=== PATIENT | male | born 1940 | race Caucasian/White ===

== ENCOUNTER 2020-08-09 18:48 | Emergency (ER) | payer MEDICARE, OTHER ==
[2020-08-09 19:31] LABS: CHLORIDE,CL 102 mEq/L (98-106); SODIUM,NA 141 mEq/L (136-145)
[2020-08-09] MEDS ORDERED: fentaNYL 100 MCG/2 ML SDV IM PRN (19:33)
--- NOTE | 2020-08-09 19:34 | EDM.PDOC ---
ED HPI GENERAL MEDICAL PROBLEM - General Chief Complaint: General Stated Complaint: Left side pain Time Seen by Provider: 08/09/20 19:25 Source of Information: Reports: Patient History Limitations: Reports: No Limitations - History of Present Illness INITIAL COMMENTS - FREE TEXT/NARRATIVE: States that he was sitting in his chair yesterday and he started to get pain in the right hip side region. Was gradual onset and then today it has moved to the left side and the pain on the right side stopped. States that he has never had pain like this before. Denies any falls or slips. Does have history of kidney stones many years ago but they didn't feel like he currently has. States that it does come and go and it is sharp suddenly and then will let up some. States that the worst pain was just as he arrived here tonight with pain 8.5/10 and being the worst that he has had. Denies any fever or chills. No n/v/d. Does not feel sick. Position does not change the pain. Onset Date: 08/08/20 Location: Reports: Abdomen, Back Left Lower Flank Pain Score (Numeric/FACES): 8 - Related Data Allergies Allergy/AdvReac Type Severity Reaction Status Date / Time bacitracin [From Mycitracin] Allergy Unknown unknown Verified 08/09/20 19:54 bee venom protein (honey bee) Allergy Unknown unknown Verified 08/09/20 19:12 lidocaine [From Mycitracin] Allergy Unknown unknown Verified 08/09/20 19:54 neomycin [From Mycitracin] Allergy Unknown unknown Verified 08/09/20 19:54 polymyxin B [From Mycitracin] Allergy Unknown unknown Verified 08/09/20 19:54 Home Meds: Home Meds Aspirin [Halfprin] 81 mg PO DAILY 08/09/20 [History] Bisoprolol/Hydrochlorothiazide [Bisoprolol-Hctz 5-6.25 mg Tab] 5 - 6.25 mg PO DAILY 08/09/20 [History] Ferrous Sulfate 65 mg PO DAILY 08/09/20 [History] Losartan Potassium 100 mg PO DAILY 08/09/20 [History] Multivitamin [Daily Multiple Vitamin] 1 each PO DAILY 08/09/20 [History] Vitamin B Complex [B Complex] 15 mcg PO DAILY 08/09/20 [History] atorvaSTATin [Lipitor] 40 mg PO DAILY 08/09/20 [History] metFORMIN HCl [Metformin HCl] 500 mg PO DAILY 08/09/20 [History] Past Medical History HEENT History: Reports: Cataract, Impaired Vision Cardiovascular History: Reports: High Cholesterol, Hypertension Genitourinary History: Reports: Renal Calculus Endocrine/Metabolic History: Reports: Diabetes, Type II - Past Surgical History GI Surgical History: Reports: Colonoscopy Musculoskeletal Surgical History: Reports: Other (See Below) Other Musculoskeletal Surgeries/Procedures:: States first toe on right foot had joint replacement Social & Family History - Tobacco Use Tobacco Use Status *Q: Current Every Day Tobacco User Years of Tobacco use: 50 Packs/Tins Daily: 0.3 - Caffeine Use Caffeine Use: Reports: Coffee - Recreational Drug Use Recreational Drug Use: No - Living Situation & Occupation Living situation: Reports: , with Spouse, with Family Occupation: Retired ED ROS GENERAL - Review of Systems Review Of Systems: See Below Constitutional: Denies: Fever, Chills, Weakness Respiratory: Reports: No Symptoms Cardiovascular: Reports: No Symptoms GI/Abdominal: Reports: Abdominal Pain. Denies: Constipation, Diarrhea, Nausea, Vomiting : Reports: Flank Pain. Denies: Dysuria Musculoskeletal: Reports: Other (see HPi) Skin: Reports: No Symptoms ED EXAM, GENERAL - Physical Exam Exam: See Below Exam Limited By: No Limitations General Appearance: Alert, WD/WN, Moderate Distress Respiratory/Chest: No Respiratory Distress, Lungs Clear, Normal Breath Sounds Cardiovascular: Normal Peripheral Pulses, Regular Rate, Rhythm, No Edema GI/Abdominal: Normal Bowel Sounds, Soft, Non-Tender, Other (Has some pain to the left pelvic bone area that can be made worse with ROM of the left leg. Pain is not worse when I had him change positions.) Back Exam: Normal Inspection Extremities: Normal Inspection, No Pedal Edema, Normal Capillary Refill Neurological: Alert, Oriented Skin Exam: Warm, Dry, Intact Course - Vital Signs Last Recorded V/S: Last Vital Signs Temp 98.8 F 08/09/20 18:48 Pulse 71 08/09/20 18:48 Resp 18 08/09/20 18:48 BP 163/80 H 08/09/20 18:48 Pulse Ox 93 L 08/09/20 18:48 - Orders/Labs/Meds Orders: Active Orders 24 hr Category Date Time Status Abdomen Pelvis w Cont [CT] Routine Exams 08/09/20 Taken fentaNYL [Sublimaze] Med 08/09/20 19:33 Active 50 mcg IM Q4H PRN Medication Orders Fentanyl (Sublimaze) 50 mcg IM Q4H PRN PRN Reason: Abdominal Pain Last Admin: 08/09/20 19:40 Dose: 50 mcg Documented by: DAYAMI Labs: Laboratory Tests 08/09/20 08/09/20 08/09/20 Range/Units 17:15 17:15 17:15 WBC 11.0 H (5.0-10.0) 10^3/uL RBC 4.83 (4.50-6.00) 10^6/uL Hgb 13.8 L (14.0-18.0) g/dL Hct 42.8 (40.0-54.0) % MCV 88.6 (82.0-94.0) fL MCH 28.6 (27.0-32.0) pg MCHC 32.2 L (33.0-38.0) g/dL RDW Coeff of Eddie 14.1 (11.0-15.0) % Plt Count 262 (150-400) 10^3/uL Neut % (Auto) 72.7 (35-85) % Lymph % (Auto) 14.4 (10-55) % Wilkes % (Auto) 9.3 (0-16) % Eos % (Auto) 3.3 (0-5) % Baso % (Auto) 0.3 (0-3) % Neut # (Auto) 8.00 H (1.80-7.00) 10^3/uL Lymph # (Auto) 1.58 (1.00-4.80) 10^3/uL Wilkes # (Auto) 1.02 H (0.00-0.80) 10^3/uL Eos # (Auto) 0.36 (0.00-0.45) 10^3/uL Baso # (Auto) 0.03 10^3/uL Sodium 141 (136-145) mEq/L Potassium 4.0 (3.5-5.0) mEq/L Chloride 102 (98-106) mEq/L Carbon Dioxide 33 H (21-32) mmol/L BUN 22 H (7-18) mg/dL Creatinine 0.9 (0.7-1.3) mg/dL Est Cr Clr Drug Dosing 72.05 mL/min Estimated GFR (MDRD) > 60 (>=60) mL/min Glucose 138 H (75-99) mg/dL Calcium 9.7 (8.4-10.1) mg/dL C-Reactive Protein (0.2-0.8) mg/dL Urine Color Dark yellow (YELLOW) Urine Appearance Slightly cloudy (CLEAR) Urine pH 6.5 (4.5-8.0) Ur Specific [place] >= 1.030 H (1.003-1.020) Urine Protein 100 H (NEGATIVE) mg/dL Urine Glucose (UA) Negative (NEGATIVE) mg/dL Urine Ketones Negative (NEGATIVE) mg/dL Urine Occult Blood Trace-intact H (NEGATIVE) Urine Nitrite Negative (NEGATIVE) Urine Bilirubin Negative (NEGATIVE) Urine Urobilinogen 2.0 H (0.2-1.0) EU/dL Ur Leukocyte Esterase Negative (NEGATIVE) Urine RBC 5-10 H (0-5) /HPF Urine WBC Not seen (0-5) /HPF Urine Mucus Moderate H (NOT SEEN) /HPF 08/09/20 Range/Units 19:30 WBC (5.0-10.0) 10^3/uL RBC (4.50-6.00) 10^6/uL Hgb (14.0-18.0) g/dL Hct (40.0-54.0) % MCV (82.0-94.0) fL MCH (27.0-32.0) pg MCHC (33.0-38.0) g/dL RDW Coeff of Eddie (11.0-15.0) % Plt Count (150-400) 10^3/uL Neut % (Auto) (35-85) % Lymph % (Auto) (10-55) % Wilkes % (Auto) (0-16) % Eos % (Auto) (0-5) % Baso % (Auto) (0-3) % Neut # (Auto) (1.80-7.00) 10^3/uL Lymph # (Auto) (1.00-4.80) 10^3/uL Wilkes # (Auto) (0.00-0.80) 10^3/uL Eos # (Auto) (0.00-0.45) 10^3/uL Baso # (Auto) 10^3/uL Sodium (136-145) mEq/L Potassium (3.5-5.0) mEq/L Chloride (98-106) mEq/L Carbon Dioxide (21-32) mmol/L BUN (7-18) mg/dL Creatinine (0.7-1.3) mg/dL Est Cr Clr Drug Dosing mL/min Estimated GFR (MDRD) (>=60) mL/min Glucose (75-99) mg/dL Calcium (8.4-10.1) mg/dL C-Reactive Protein 15.9 H (0.2-0.8) mg/dL Urine Color (YELLOW) Urine Appearance (CLEAR) Urine pH (4.5-8.0) Ur Specific [place] (1.003-1.020) Urine Protein (NEGATIVE) mg/dL Urine Glucose (UA) (NEGATIVE) mg/dL Urine Ketones (NEGATIVE) mg/dL Urine Occult Blood (NEGATIVE) Urine Nitrite (NEGATIVE) Urine Bilirubin (NEGATIVE) Urine Urobilinogen (0.2-1.0) EU/dL Ur Leukocyte Esterase (NEGATIVE) Urine RBC (0-5) /HPF Urine WBC (0-5) /HPF Urine Mucus (NOT SEEN) /HPF Meds: Medications Generic Name Dose Route Start Last Admin Trade Name Freq PRN Reason Stop Dose Admin Fentanyl 50 mcg 08/09/20 19:33 08/09/20 19:40 Sublimaze IM 50 mcg Q4H PRN Administration Abdominal Pain Discontinued Medications Generic Name Dose Route Start Last Admin Trade Name Freq PRN Reason Stop Dose Admin Iopamidol 100 ml 08/09/20 20:14 08/09/20 20:36 Isovue-370 (76%) IVPUSH 08/09/20 20:15 100 ml ONETIME ONE Administration - Re-Assessments/Exams Free Text/Narrative Re-Assessment/Exam: 08/09/20 20:13 In to discuss the labs. He has elevated WBC, and CRP with blood in urine. Will get CT scan abdomen to further evaluate. 08/09/20 20:58 States that with the pain meds his pain is now completely gone. Awaiting results of CT scan. 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 Will need to brick picker at drug store. push fluids as needed tylenol or ibuprofen for pain If pain is not controlled then recheck. Sepsis Event Note (ED) - Evaluation Sepsis Screening Result: No Definite Risk - Focused Exam Vital Signs: Vital Signs Temp Pulse Resp BP Pulse Ox 08/09/20 18:48 98.8 F 71 18 163/80 H 93 L - Problem List & Annotations (1) Diverticulitis large intestine SNOMED Code(s): 8031650 Code(s): K57.32 - DVTRCLI OF LG INT W/O PERFORATION OR ABSCESS W/O BLEEDING Status: Acute Priority: High Current Visit: Yes Qualifiers: Diverticulitis bleeding: without bleeding Diverticulitis complication: without perforation or abscess Qualified Code(s): K57.32 - Diverticulitis of large intestine without perforation or abscess without bleeding - Problem List Review Problem List Initiated/Reviewed/Updated: Yes - My Orders Last 24 Hours: My Active Orders 08/09/20 Abdomen Pelvis w Cont [CT] Routine 08/09/20 19:33 fentaNYL [Sublimaze] 50 mcg IM Q4H PRN - Assessment/Plan Last 24 Hours: My Active Orders 08/09/20 Abdomen Pelvis w Cont [CT] Routine 08/09/20 19:33 fentaNYL [Sublimaze] 50 mcg IM Q4H PRN
[2020-08-09] MEDS ORDERED: Iopamidol 755 Mg/ML 100 ML Bottle IVPUSH ONE (20:14)
[2020-08-09] MEDS ORDERED: Levofloxacin 500 MG Tab ONE (21:11)
[2020-08-09] MEDS ORDERED: Take Home: Levofloxacin 500 MG Tab, 1 Tab Pack PO ONE (21:19)
== END 2020-08-09 21:40 | disposition home or self-care (01) ==
LOC: CC.ED 18:48
DX: K57.32 Diverticulitis of large intestine without perforation or abscess without bleeding (principal); D72.829 Elevated white blood cell count, unspecified; E78.00 Pure hypercholesterolemia, unspecified; I10 Essential (primary) hypertension; E11.9 Type 2 diabetes mellitus without complications; F17.210 Nicotine dependence, cigarettes, uncomplicated; Z88.1 Allergy status to other antibiotic agents; Z91.030 Bee allergy status; Z88.4 Allergy status to anesthetic agent; Z79.82 Long term (current) use of aspirin; Z79.899 Other long term (current) drug therapy
CPT/HCPCS: 36415; 74177; 80048; 81001; 85025; 86140; 96372; 99284; A9270; J3010; Q9967

== ENCOUNTER → 2021-11-03 | Day surgery (SDC) | payer MEDICARE, OTHER ==
[~2021-11-03] MED LIST: Ketamine 200 MG/20 ML MDV ONE; Lactated Ringers 1,000 ML IV SCH; Lidocaine 1% with EPINEPHrine 1:100,000 20 ML MDV INJECT ONE; Lidocaine 1% with EPINEPHrine 1:100,000 20 ML MDV ONE; Midazolam 1 MG/ML 2 ML SDV ONE; Propofol 200 MG/20 ML SDV ONE; fentaNYL 100 MCG/2 ML SDV ONE
== END ==
LOC: CC.SDS 10:56
PROVIDERS: ATTEND Surgery
DX: D17.1 Benign lipomatous neoplasm of skin and subcutaneous tissue of trunk (principal); I10 Essential (primary) hypertension; E78.00 Pure hypercholesterolemia, unspecified; E11.9 Type 2 diabetes mellitus without complications; E66.9 Obesity, unspecified; Z68.26 Body mass index [BMI] 26.0-26.9, adult; Z90.49 Acquired absence of other specified parts of digestive tract; Z90.89 Acquired absence of other organs; Z98.890 Other specified postprocedural states; Z79.82 Long term (current) use of aspirin; Z79.84 Long term (current) use of oral hypoglycemic drugs; Z79.899 Other long term (current) drug therapy; Z77.22 Contact with and (suspected) exposure to environmental tobacco smoke (acute) (chronic)
CPT/HCPCS: 00300; J2250; J2704; J3010; J7120

== ENCOUNTER 2022-08-04 15:24 | Inpatient (IN) | payer MEDICARE, OTHER ==
[2022-08-04 15:47] LABS: CHLORIDE,CL 100 mEq/L (98-106); SODIUM,NA 138 mEq/L (136-145)
[2022-08-04 15:52] LABS: ESTIMATED GFR 86 mL/min (>=60)
[2022-08-04] MEDS ORDERED: Sodium Chloride 0.9% 10 ML Syringe FLUSH PRN (16:33)
[2022-08-04] MEDS ORDERED: Ondansetron 4 MG/2 ML SDV IV PRN (16:33)
[2022-08-04] MEDS: Albuterol/Ipratropium 3.0-0.5 MG/3 ML Neb Soln NEB PRN ×2 (16:48→21:05)
[2022-08-04] MEDS: Acetaminophen 325 MG Tab PO PRN ×2 (16:48→21:04)
[2022-08-04] MEDS: Sodium Chloride 0.9% 1,000 ML IV SCH (16:49)
[2022-08-04] MEDS: Enoxaparin 40 MG/0.4 ML Syringe SUBCUT SCH (19:55)
[2022-08-04] MEDS: guaiFENesin 200 MG Tab PO SCH (19:56)
[2022-08-05] MEDS: Acetaminophen 325 MG Tab PO PRN ×4 (04:18→19:45)
[2022-08-05] MEDS: Aspirin 81 MG Tab.EC PO SCH (07:57)
[2022-08-05] MEDS: Multivitamin Tab PO SCH (07:58)
[2022-08-05] MEDS: atorvaSTATin 20 MG Tab PO SCH (07:58)
[2022-08-05] MEDS: Losartan 100 MG Tab PO SCH (07:58)
[2022-08-05] MEDS: guaiFENesin 200 MG Tab PO SCH ×3 (07:58→19:36)
[2022-08-05] MEDS: Albuterol/Ipratropium 3.0-0.5 MG/3 ML Neb Soln NEB PRN ×3 (07:59→19:46)
[2022-08-05] MEDS ORDERED: Non-Formulary Medication 1 Each (Ubidecarenone [Co Q-10] 100 MG Capsule) PO SCH (08:00)
[2022-08-05] MEDS: metFORMIN 500 MG Tab PO SCH (08:06)
[2022-08-05] MEDS: Sodium Chloride 0.9% 1,000 ML IV SCH (14:08)
[2022-08-05] MEDS: Enoxaparin 40 MG/0.4 ML Syringe SUBCUT SCH (19:35)
[2022-08-06] MEDS: atorvaSTATin 20 MG Tab PO SCH (08:07)
[2022-08-06] MEDS: guaiFENesin 200 MG Tab PO SCH ×3 (08:07→19:19)
[2022-08-06] MEDS: Losartan 100 MG Tab PO SCH (08:08)
[2022-08-06] MEDS: Multivitamin Tab PO SCH (08:08)
[2022-08-06] MEDS: Aspirin 81 MG Tab.EC PO SCH (08:08)
[2022-08-06] MEDS: Albuterol/Ipratropium 3.0-0.5 MG/3 ML Neb Soln NEB PRN ×3 (08:08→19:20)
[2022-08-06] MEDS: metFORMIN 500 MG Tab PO SCH (08:10)
[2022-08-06] MEDS: Sodium Chloride 0.9% 1,000 ML IV SCH (10:26)
[2022-08-06] MEDS: Acetaminophen 325 MG Tab PO PRN ×2 (11:14→16:21)
[2022-08-06] MEDS: Enoxaparin 40 MG/0.4 ML Syringe SUBCUT SCH (19:19)
[2022-08-07] MEDS: Acetaminophen 325 MG Tab PO PRN (00:04)
[2022-08-07] MEDS: metFORMIN 500 MG Tab PO SCH (08:03)
[2022-08-07] MEDS: Albuterol/Ipratropium 3.0-0.5 MG/3 ML Neb Soln NEB PRN (08:03)
[2022-08-07] MEDS: Multivitamin Tab PO SCH (08:04)
[2022-08-07] MEDS: Losartan 100 MG Tab PO SCH (08:04)
[2022-08-07] MEDS: guaiFENesin 200 MG Tab PO SCH ×3 (08:04→19:20)
[2022-08-07] MEDS: Aspirin 81 MG Tab.EC PO SCH (08:04)
[2022-08-07] MEDS: atorvaSTATin 20 MG Tab PO SCH (08:05)
[2022-08-07] MEDS: Enoxaparin 40 MG/0.4 ML Syringe SUBCUT SCH (19:20)
[2022-08-08] MEDS: Multivitamin Tab PO SCH (08:20)
[2022-08-08] MEDS: Aspirin 81 MG Tab.EC PO SCH (08:20)
[2022-08-08] MEDS: metFORMIN 500 MG Tab PO SCH (08:20)
[2022-08-08] MEDS: atorvaSTATin 20 MG Tab PO SCH (08:20)
[2022-08-08] MEDS: guaiFENesin 200 MG Tab PO SCH ×3 (08:20→19:27)
[2022-08-08] MEDS: Losartan 100 MG Tab PO SCH (08:21)
[2022-08-08] MEDS: Enoxaparin 40 MG/0.4 ML Syringe SUBCUT SCH (19:27)
[2022-08-09] MEDS: Losartan 100 MG Tab PO SCH (07:37)
[2022-08-09] MEDS: metFORMIN 500 MG Tab PO SCH (07:37)
[2022-08-09] MEDS: Multivitamin Tab PO SCH (07:37)
[2022-08-09] MEDS: Aspirin 81 MG Tab.EC PO SCH (07:37)
[2022-08-09] MEDS: atorvaSTATin 20 MG Tab PO SCH (07:37)
[2022-08-09] MEDS: guaiFENesin 200 MG Tab PO SCH ×2 (07:37→14:21)
== END 2022-08-09 15:07 | disposition home or self-care (01) | DRG 193 ==
LOC: CC.MS 15:24 → CC.FCMC 15:24 → UNDOADMIN 16:09 → CC.MS 16:09
PROVIDERS: ADMIT Physician Assistant Medical; ATTEND Nurse Practitioner Family
DX: J10.1 Influenza due to other identified influenza virus with other respiratory manifestations (principal); J81.0 Acute pulmonary edema; H54.7 Unspecified visual loss; R09.02 Hypoxemia; Z20.822 Contact with and (suspected) exposure to COVID-19; E11.9 Type 2 diabetes mellitus without complications; I10 Essential (primary) hypertension; E78.00 Pure hypercholesterolemia, unspecified; Z79.82 Long term (current) use of aspirin; Z79.84 Long term (current) use of oral hypoglycemic drugs; Z79.899 Other long term (current) drug therapy
CPT/HCPCS: 36415; 71045; 71046; 80048; 80053; 82947; 83605; 83735; 83880; 85025; 86140; 87804; 94640; 99223; 99232; 99233; 99239; A9270-GY; J1650; J7030; J7620-GY; U0002

== ENCOUNTER 2024-03-17 22:50 | Emergency (ER) | payer MEDICARE, OTHER ==
[2024-03-17] MEDS: Tranexamic Acid 1,000 MG/10 ML Vial TOP ONE (23:23)
== END 2024-03-18 00:33 | disposition home or self-care (01) ==
LOC: CC.ED 22:50
DX: S02.5XXB Fracture of tooth (traumatic), initial encounter for open fracture (principal); R58 Hemorrhage, not elsewhere classified; Z79.01 Long term (current) use of anticoagulants; I10 Essential (primary) hypertension; E78.00 Pure hypercholesterolemia, unspecified; E11.9 Type 2 diabetes mellitus without complications; Z79.82 Long term (current) use of aspirin; Z79.84 Long term (current) use of oral hypoglycemic drugs; Z79.899 Other long term (current) drug therapy; X50.9XXA Other and unspecified overexertion or strenuous movements or postures, initial encounter
CPT/HCPCS: 99283; 99284; J3490

== ENCOUNTER 2024-07-04 15:42 | Emergency (ER) | payer MEDICARE, OTHER ==
[2024-07-04] MEDS: Silver Nitrate Applicator Each TOP ONE (16:27)
== END 2024-07-04 16:50 | disposition home or self-care (01) ==
LOC: CC.ED 15:42
DX: L76.22 Postprocedural hemorrhage of skin and subcutaneous tissue following other procedure (principal); I10 Essential (primary) hypertension; E78.00 Pure hypercholesterolemia, unspecified; E11.9 Type 2 diabetes mellitus without complications; Z79.899 Other long term (current) drug therapy; Z79.82 Long term (current) use of aspirin; Z79.01 Long term (current) use of anticoagulants
CPT/HCPCS: 12002; 99283